=== PATIENT | female | born 1965 | race Caucasian/White ===

== ENCOUNTER 2024-02-19 09:48 | Emergency (ER) | payer BC ==
[~2024-02-19] VITALS: Ht 162.6 cm; Wt 81.8 kg
[2024-02-19] MEDS ORDERED: LEXA1TAB2 PO (10:25)
[2024-02-19] MEDS: IBUPROFEN 600MG TAB PO ONE (11:48)
[2024-02-19] MEDS: LIDOCAINE W/EPINEPHRINE 1% 20ML VIAL SC ONE (11:49)
[2024-02-19] MEDS: BOOSTRIX VACCINE (TETANUS/DIPHTH/ACEL. PERTUSSIS) 0.5ML SYR IM ONE (11:49)
[2024-02-19] MEDS ORDERED: CEFU50TA PO (12:52)
[2024-02-19] MEDS ORDERED: METR-265 PO (12:52)
[2024-02-19 13:09] VITALS: BP 124/78; TEMP 97.8; O2SAT 98
== END 2024-02-19 13:19 | disposition home or self-care (01) ==
LOC: M ED 13:00
DX: S81.802A Unspecified open wound, left lower leg, initial encounter (principal); Y92.9 Unspecified place or not applicable; Y93.9 Activity, unspecified; Y99.9 Unspecified external cause status; W54.0XXA Bitten by dog, initial encounter; J45.909 Unspecified asthma, uncomplicated; Z88.0 Allergy status to penicillin; Z88.2 Allergy status to sulfonamides; Z79.2 Long term (current) use of antibiotics; Z79.899 Other long term (current) drug therapy; Z23 Encounter for immunization